=== PATIENT | female | born 1995 | race Asian ===

== ENCOUNTER 2017-11-10 20:58 | Emergency (ER) | payer SELFPAY ==
[2017-11-10] MEDS ORDERED: ACETAMINOPHEN 325 MG TABLET PO ONE (21:47)
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
== END 2017-11-10 23:52 | disposition home or self-care (01) ==
LOC: ER 20:58
DX: M25.571 Pain in right ankle and joints of right foot (principal); M79.674 Pain in right toe(s); G44.209 Tension-type headache, unspecified, not intractable; V81 Occupant of railway train or railway vehicle injured in transport accident; F17.200 Nicotine dependence, unspecified, uncomplicated
CPT/HCPCS: 99284; 73610; 73630; 70450; L4350